=== PATIENT | female | born 1935 | race Caucasian/White ===

== ENCOUNTER 2018-07-14 21:32 | Inpatient (IN) | payer OTHER ==
[~2018-07-14] VITALS: Ht 162.6 cm; Wt 81.2 kg
[2018-07-14 21:32] VITALS: BP_SYST 115
[2018-07-14] MEDS ORDERED: ASPIRIN 81 MG TAB.CHEW PO ONE (21:45)
[2018-07-14] MEDS ORDERED: methylPREDNISolone SOD SUCC/PF 62.5 MG/ML VIAL IVP ONE (21:45)
[2018-07-14] MEDS ORDERED: LIDOCAINE JECT 2% PF 100 MG/5ML SYRINGE IVP ONE (21:45)
[2018-07-14] MEDS ORDERED: LevALBUTEROL HCL 1.25 MG/0.5 ML *CONC.* VIAL.NEB (XOPENEX CONC.) INH ONE ×2 (21:45→21:59)
[2018-07-14] MEDS ORDERED: IPRATROPIUM BROM 0.5 MG/2.5 ML VIAL.NEB (ATROVENT) IH ONE (21:45)
[2018-07-14] MEDS ORDERED: IPRATROPIUM BROM 0.5 MG/2.5 ML VIAL.NEB (ATROVENT) INH ONE (21:59)
[2018-07-14 22:09] LABS: ANION GAP 12 (5-15); CALCIUM 8.5 mg/dL (8.4-11.0); CHLORIDE 102 mmol/L (98-107); CREATININE 1.26 mg/dL (0.55-1.30); GLUCOSE 357 mg/dL (70-99); POTASSIUM 4.5 mmol/L (3.5-5.1); SODIUM SERUM 137 mmol/L (136-145); UREA NITROGEN, BLOOD 25 mg/dL (8-21)
[2018-07-14] MEDS ORDERED: ALBU8.5H8 INH (22:11)
[2018-07-14] MEDS ORDERED: LOSA100T3 PO (22:11)
[2018-07-14] MEDS ORDERED: DILTIAZEM HCL 25 MG/5 ML VIAL ONE (22:11)
[2018-07-14] MEDS ORDERED: METO25TA3 PO (22:11)
[2018-07-14] MEDS ORDERED: ASA81 PO (22:11)
[2018-07-14] MEDS ORDERED: OXYB10TA4 PO (22:11)
[2018-07-14 22:13] LABS: ALANINE AMINOTRANSFERASE 30 U/L (12-78); ALBUMIN 3.1 g/dL (3.4-4.8); ASPARTATE AMINOTRANSFERASE 17 U/L (10-37); TOTAL BILIRUBIN 0.6 mg/dL (0.0-1.0)
[2018-07-14] MEDS ORDERED: DILTIAZEM HCL 25 MG/5 ML VIAL IVP ONE ×2 (22:30)
[2018-07-14] MEDS ORDERED: DILTIAZEM HCL 125 MG in D5W 100 ML IV ONE (22:30)
[2018-07-14 22:36] LABS: HEMOGLOBIN 13.9 g/dL (12.0-16.0); RED BLOOD CELL COUNT(AUTO) 4.76 MIL/uL (4.2-6.2); WHITE BLOOD COUNT (AUTO) 10.7 K/uL (4.8-10.8)
[2018-07-14 22:37] LABS: HEMATOCRIT 46.2 % (36-48); MEAN CORPUSCULAR HEMOGLOBIN 29 pg (27-31); MEAN CORPUSCULAR HGB CONC 30 % (32-36); MEAN CORPUSCULAR VOLUME 97 fL (79.0-98.0); PLATELET COUNT (AUTO) 240 K/uL (130-430); RED CELL DISTRIBUTION WIDTH 17.1 % (9.0-15.0)
[2018-07-14 22:40] LABS: INR 1.1 (0.8-1.2); PROTHROMBIN TIME 11.1 SECS (9.5-12.5)
[2018-07-14] MEDS ORDERED: DILTIAZEM HCL 125 MG/25 ML VIAL IV ONE (22:41)
[2018-07-14] MEDS ORDERED: FUROSEMIDE 20 MG/2 ML VIAL IVP ONE (22:45)
[2018-07-14 23:00] LABS: BILIRUBIN,URINE NEGATIVE (NEGATIVE); BLOOD, URINE NEGATIVE (NEGATIVE); CLARITY/URINE SL HAZY (CLEAR); COLOR,URINE YELLOW (YELLOW); GLUCOSE,URINE NEGATIVE (NEGATIVE); KETONES,URINE NEGATIVE (NEGATIVE); LEUKOCYTE ESTERASE ,URINE 1+ (NEGATIVE); NITRITE, URINE POSITIVE (NEGATIVE); PROTEIN URINE TRACE (NEGATIVE)
[2018-07-14] MEDS ORDERED: INSULIN REGULAR, HUMAN 10 UNITS/0.1 ML INJ IVP ONE (23:00)
[2018-07-14 23:05] LABS: ATYPICAL LYMPHOCYTES % 0 % (0-0); BAND % (MANUAL) 7 % (0-6); EOSINOPHILS % (MANUAL) 0 % (0-7); LYMPHOCYTES % (MANUAL) 32 % (20-46); MONOCYTES % (MANUAL) 8 % (0-11)
[2018-07-14 23:06] LABS: BASOPHILS % (MANUAL) 0 % (0-2); METAMYELOCYTES % 1 % (0-0); MYELOCYTES % 2 % (0-0); PROMYELOCYTES % 0 % (0-0)
[2018-07-14 23:07] LABS: BACTERIA,URINE MANY /HPF (None Seen); RBC,URINE 0-3 /HPF (0-3); WBC,URINE 20-50 /HPF (0-3)
[2018-07-14 23:45] VITALS: BP_SYST 99
[2018-07-15] VITALS (26 sets, daily range): BP systolic 90–176
[2018-07-15] MEDS ORDERED: HYDROcodone/ACETAMIN 10-325 MG TAB PO PRN (01:15)
[2018-07-15] MEDS ORDERED: ALBUTEROL SULFATE 0.083% 2.5 MG/3 ML VIAL.NEB INH PRN (01:15)
[2018-07-15] MEDS ORDERED: DILTIAZEM HCL 125 MG in D5W 100 ML IV SCH (01:15)
[2018-07-15] MEDS ORDERED: HYDROcodone/ACETAMIN 5-325 MG TAB (NORCO/ VICODIN) PO PRN (01:15)
[2018-07-15] MEDS ORDERED: ONDANSETRON HCL 4 MG/2 ML VIAL IVP PRN (01:15)
[2018-07-15] MEDS ORDERED: INSULIN ASPART 100 UNITS/ML, 10 ML VIAL (NovoLOG) SUBCUT PRN (01:15)
[2018-07-15] MEDS ORDERED: NOREPINEPHRINE BITARTRATE 4 MG in D5W 246 ML IV PRN (01:30)
[2018-07-15] MEDS ORDERED: AZITHROMYCIN 500 MG/VIAL (ZITHROMAX) IV ONE (02:05)
[2018-07-15] MEDS ORDERED: cefTRIAXone 1 GM IVPB PREMIX 50 ML IV ONE (02:05)
[2018-07-15] MEDS: cefTRIAXone 1 GM IVPB PREMIX 50 ML IV SCH (02:19)
[2018-07-15] MEDS: AZITHROMYCIN 500 MG in NS 250 ML IV SCH (03:23)
[2018-07-15 05:34] LABS: HEMATOCRIT 40.3 % (36-48); MEAN CORPUSCULAR HEMOGLOBIN 29 pg (27-31); MEAN CORPUSCULAR HGB CONC 32 % (32-36); MEAN CORPUSCULAR VOLUME 91 fL (79.0-98.0); PLATELET COUNT (AUTO) 200 K/uL (130-430); RED BLOOD CELL COUNT(AUTO) 4.42 MIL/uL (4.2-6.2); RED CELL DISTRIBUTION WIDTH 16.1 % (9.0-15.0); WHITE BLOOD COUNT (AUTO) 6.9 K/uL (4.8-10.8)
[2018-07-15 05:35] LABS: ANION GAP 9 (5-15); BASOPHILS % (AUTO) 0.1 % (0.0-2.0); CALCIUM 8.3 mg/dL (8.4-11.0); CHLORIDE 104 mmol/L (98-107); CREATININE 1.13 mg/dL (0.55-1.30); GLUCOSE 259 mg/dL (70-99); LYMPHOCYTES # (AUTO) 0.4 K/uL (1.0-5.5); LYMPHOCYTES % (AUTO) 6.1 % (20.5-51.5); MONOCYTES # (AUTO) 0.4 K/uL (0.0-1.0); MONOCYTES % (AUTO) 5.1 % (1.7-9.3); NEUTROPHILS # (AUTO) 6.1 K/uL (1.8-7.7); NEUTROPHILS % (AUTO) 88.7 % (40.0-70.0); POTASSIUM 5.3 mmol/L (3.5-5.1); SODIUM SERUM 137 mmol/L (136-145); UREA NITROGEN, BLOOD 33 mg/dL (8-21)
[2018-07-15 05:44] LABS: ALANINE AMINOTRANSFERASE 517 U/L (12-78); ALBUMIN 2.9 g/dL (3.4-4.8); ASPARTATE AMINOTRANSFERASE 450 U/L (10-37); TOTAL BILIRUBIN 0.4 mg/dL (0.0-1.0)
[2018-07-15] MEDS: NORMAL SALINE 5 ML DISP.SYRIN IVF SCH ×3 (06:11→22:14)
[2018-07-15] MEDS: INSULIN Lispro 100 UNITS/ML VIAL (humaLOG) SUBCUT PRN ×4 (06:55→22:22)
[2018-07-15] MEDS ORDERED: ENOXAPARIN SODIUM 30 MG/0.3 ML SYRINGE SUBCUT SCH (09:00)
[2018-07-15 09:11] LABS: ANION GAP 6 (5-15); CALCIUM 8.4 mg/dL (8.4-11.0); CHLORIDE 105 mmol/L (98-107); CREATININE 1.02 mg/dL (0.55-1.30); GLUCOSE 229 mg/dL (70-99); SODIUM SERUM 138 mmol/L (136-145); UREA NITROGEN, BLOOD 30 mg/dL (8-21)
[2018-07-15 09:16] LABS: ALANINE AMINOTRANSFERASE 459 U/L (12-78); ASPARTATE AMINOTRANSFERASE 308 U/L (10-37); TOTAL BILIRUBIN 0.5 mg/dL (0.0-1.0)
[2018-07-15] MEDS: FUROSEMIDE 40 MG/4 ML VIAL IVP SCH (09:25)
[2018-07-15] MEDS: ASPIRIN 81 MG TAB.CHEW PO SCH (09:25)
[2018-07-15] MEDS: PANTOPRAZOLE SODIUM 40 MG TAB PO SCH (09:26)
[2018-07-15] MEDS: LOSARTAN POTASSIUM 50 MG TABLET (COZAAR) PO SCH (09:26)
[2018-07-15] MEDS: METOPROLOL SUCCINATE 25 MG TAB.SR.24H (TOPROL XL) PO SCH (09:36)
[2018-07-15] MEDS ORDERED: DILTIAZEM HCL 125 MG/25 ML VIAL IV ONE (09:45)
[2018-07-15] MEDS ORDERED: LEVALBUTEROL HCL 0.63 MG/3 ML VIAL.NEB INH ONE (14:15)
[2018-07-15] MEDS: IPRATROPIUM BROM 0.5 MG/2.5 ML VIAL.NEB (ATROVENT) INH SCH ×2 (15:00→22:10)
[2018-07-15] MEDS ORDERED: LIDOCAINE JECT 2% PF 100 MG/5ML SYRINGE IVP ONE (16:24)
[2018-07-15] MEDS ORDERED: AMIODARONE HCL 200 MG TABLET PO ONE (18:30)
[2018-07-15] MEDS ORDERED: APIXABAN 2.5 MG TABLET PO ONE (18:30)
[2018-07-15] MEDS: LEVALBUTEROL HCL 0.63 MG/3 ML VIAL.NEB INH SCH (22:10)
[2018-07-16] MEDS: cefTRIAXone 1 GM IVPB PREMIX 50 ML IV SCH (01:58)
[2018-07-16] MEDS: AZITHROMYCIN 500 MG in NS 250 ML IV SCH (03:37)
[2018-07-16] MEDS: NORMAL SALINE 5 ML DISP.SYRIN IVF SCH ×3 (06:13→21:39)
[2018-07-16] MEDS: INSULIN Lispro 100 UNITS/ML VIAL (humaLOG) SUBCUT PRN ×3 (06:17→20:32)
[2018-07-16] MEDS: LEVALBUTEROL HCL 0.63 MG/3 ML VIAL.NEB INH SCH ×3 (07:20→23:57)
[2018-07-16] MEDS: IPRATROPIUM BROM 0.5 MG/2.5 ML VIAL.NEB (ATROVENT) INH SCH ×3 (07:20→23:58)
[2018-07-16 07:27] LABS: ALANINE AMINOTRANSFERASE 316 U/L (12-78); ALBUMIN 2.8 g/dL (3.4-4.8); ANION GAP 6 (5-15); ASPARTATE AMINOTRANSFERASE 115 U/L (10-37); BILIRUBIN,DIRECT 0.1 mg/dL (0.0-0.3); CHLORIDE 104 mmol/L (98-107); CREATININE 1.14 mg/dL (0.55-1.30); GLUCOSE 184 mg/dL (70-99); POTASSIUM 4.7 mmol/L (3.5-5.1); SODIUM SERUM 132 mmol/L (136-145); TOTAL BILIRUBIN 0.4 mg/dL (0.0-1.0); UREA NITROGEN, BLOOD 38 mg/dL (8-21)
[2018-07-16 08:05] VITALS: BP_SYST 134
[2018-07-16 08:07] LABS: HEMATOCRIT 38.6 % (36-48); HEMOGLOBIN 12.5 g/dL (12.0-16.0); MEAN CORPUSCULAR HEMOGLOBIN 30 pg (27-31); MEAN CORPUSCULAR HGB CONC 32 % (32-36); MEAN CORPUSCULAR VOLUME 92 fL (79.0-98.0); NEUTROPHILS % (AUTO) 78.5 % (40.0-70.0); PLATELET COUNT (AUTO) 171 K/uL (130-430); RED BLOOD CELL COUNT(AUTO) 4.19 MIL/uL (4.2-6.2); RED CELL DISTRIBUTION WIDTH 16.6 % (9.0-15.0); WHITE BLOOD COUNT (AUTO) 10.9 K/uL (4.8-10.8)
[2018-07-16 08:08] LABS: BASOPHILS % (AUTO) 0.4 % (0.0-2.0); EOSINOPHILS % (AUTO) 0.2 % (0.0-4.0); LYMPHOCYTES # (AUTO) 1.1 K/uL (1.0-5.5); LYMPHOCYTES % (AUTO) 10.2 % (20.5-51.5); MONOCYTES # (AUTO) 1.2 K/uL (0.0-1.0); MONOCYTES % (AUTO) 10.7 % (1.7-9.3); NEUTROPHILS # (AUTO) 8.5 K/uL (1.8-7.7)
[2018-07-16] MEDS: ASPIRIN 81 MG TAB.CHEW PO SCH (08:37)
[2018-07-16] MEDS: APIXABAN 2.5 MG TABLET PO SCH ×2 (08:38→20:30)
[2018-07-16] MEDS: PANTOPRAZOLE SODIUM 40 MG TAB PO SCH (08:39)
[2018-07-16] MEDS: METOPROLOL SUCCINATE 25 MG TAB.SR.24H (TOPROL XL) PO SCH (08:40)
[2018-07-16] MEDS: AMIODARONE HCL 200 MG TABLET PO SCH ×2 (08:41→20:30)
[2018-07-16] MEDS: LOSARTAN POTASSIUM 50 MG TABLET (COZAAR) PO SCH (08:41)
[2018-07-16] MEDS: FUROSEMIDE 40 MG/4 ML VIAL IVP SCH (08:42)
[2018-07-16 12:59] VITALS: BP_SYST 104
[2018-07-16 16:44] VITALS: BP_SYST 111
[2018-07-16 19:00] VITALS: BP_SYST 155
[2018-07-16 20:00] VITALS: BP_SYST 155
[2018-07-17 00:12] VITALS: BP_SYST 114
[2018-07-17] MEDS: cefTRIAXone 1 GM IVPB PREMIX 50 ML IV SCH (01:59)
[2018-07-17] MEDS: AZITHROMYCIN 500 MG in NS 250 ML IV SCH (03:09)
[2018-07-17] MEDS: NORMAL SALINE 5 ML DISP.SYRIN IVF SCH ×3 (05:32→21:15)
[2018-07-17 06:48] LABS: ANION GAP 2 (5-15); CHLORIDE 103 mmol/L (98-107); GLUCOSE 127 mg/dL (70-99); POTASSIUM 4.1 mmol/L (3.5-5.1); SODIUM SERUM 131 mmol/L (136-145); UREA NITROGEN, BLOOD 27 mg/dL (8-21)
[2018-07-17] MEDS: IPRATROPIUM BROM 0.5 MG/2.5 ML VIAL.NEB (ATROVENT) INH SCH ×3 (07:10→23:30)
[2018-07-17] MEDS: LEVALBUTEROL HCL 0.63 MG/3 ML VIAL.NEB INH SCH ×3 (07:11→23:30)
[2018-07-17 08:00] VITALS: BP_SYST 118
[2018-07-17] MEDS: PANTOPRAZOLE SODIUM 40 MG TAB PO SCH (08:30)
[2018-07-17] MEDS: METOPROLOL SUCCINATE 25 MG TAB.SR.24H (TOPROL XL) PO SCH ×2 (08:30→21:12)
[2018-07-17] MEDS: ASPIRIN 81 MG TAB.CHEW PO SCH (08:30)
[2018-07-17] MEDS: APIXABAN 2.5 MG TABLET PO SCH ×2 (08:30→21:14)
[2018-07-17] MEDS: AMIODARONE HCL 200 MG TABLET PO SCH ×2 (08:31→21:12)
[2018-07-17] MEDS: LOSARTAN POTASSIUM 50 MG TABLET (COZAAR) PO SCH (08:31)
[2018-07-17] MEDS: FUROSEMIDE 40 MG/4 ML VIAL IVP SCH (08:31)
[2018-07-17] MEDS: INSULIN Lispro 100 UNITS/ML VIAL (humaLOG) SUBCUT PRN ×2 (11:22→21:10)
[2018-07-17 11:47] VITALS: BP_SYST 130
[2018-07-17] MEDS ORDERED: DILTIAZEM HCL 25 MG/5 ML VIAL IVP ONE (14:15)
[2018-07-17 15:19] VITALS: BP_SYST 119
[2018-07-18 01:16] VITALS: BP_SYST 135
[2018-07-18] MEDS: cefTRIAXone 1 GM IVPB PREMIX 50 ML IV SCH (01:28)
[2018-07-18] MEDS: AZITHROMYCIN 500 MG in NS 250 ML IV SCH (04:08)
[2018-07-18] MEDS: INSULIN Lispro 100 UNITS/ML VIAL (humaLOG) SUBCUT PRN ×3 (05:47→21:15)
[2018-07-18] MEDS: NORMAL SALINE 5 ML DISP.SYRIN IVF SCH ×3 (06:35→22:00)
[2018-07-18] MEDS: IPRATROPIUM BROM 0.5 MG/2.5 ML VIAL.NEB (ATROVENT) INH SCH ×3 (08:04→23:21)
[2018-07-18] MEDS: LEVALBUTEROL HCL 0.63 MG/3 ML VIAL.NEB INH SCH ×3 (08:04→23:21)
[2018-07-18 08:10] VITALS: BP_SYST 141
[2018-07-18] MEDS: FUROSEMIDE 40 MG/4 ML VIAL IVP SCH (08:51)
[2018-07-18] MEDS: PANTOPRAZOLE SODIUM 40 MG TAB PO SCH (08:52)
[2018-07-18] MEDS: LOSARTAN POTASSIUM 50 MG TABLET (COZAAR) PO SCH (08:52)
[2018-07-18] MEDS: AMIODARONE HCL 200 MG TABLET PO SCH ×2 (08:52→21:11)
[2018-07-18] MEDS: APIXABAN 2.5 MG TABLET PO SCH ×2 (08:53→21:12)
[2018-07-18] MEDS: METOPROLOL SUCCINATE 25 MG TAB.SR.24H (TOPROL XL) PO SCH (08:53)
[2018-07-18] MEDS: ASPIRIN 81 MG TAB.CHEW PO SCH (08:54)
[2018-07-18 11:21] VITALS: BP_SYST 122
[2018-07-18 15:29] VITALS: BP_SYST 117
[2018-07-18 19:37] VITALS: BP_SYST 134
[2018-07-18] MEDS: METOPROLOL SUCCINATE 50 MG TAB.SR.24H (TOPROL XL) PO SCH (21:11)
[2018-07-19 00:28] VITALS: BP_SYST 128
[2018-07-19] MEDS: cefTRIAXone 1 GM IVPB PREMIX 50 ML IV SCH (02:07)
[2018-07-19] MEDS: AZITHROMYCIN 500 MG in NS 250 ML IV SCH (03:06)
[2018-07-19] MEDS: INSULIN Lispro 100 UNITS/ML VIAL (humaLOG) SUBCUT PRN ×2 (05:44→12:30)
[2018-07-19] MEDS: NORMAL SALINE 5 ML DISP.SYRIN IVF SCH (05:51)
[2018-07-19] MEDS: LEVALBUTEROL HCL 0.63 MG/3 ML VIAL.NEB INH SCH (07:22)
[2018-07-19] MEDS: IPRATROPIUM BROM 0.5 MG/2.5 ML VIAL.NEB (ATROVENT) INH SCH (07:22)
[2018-07-19] MEDS: ASPIRIN 81 MG TAB.CHEW PO SCH (10:39)
[2018-07-19] MEDS: FUROSEMIDE 40 MG/4 ML VIAL IVP SCH (10:40)
[2018-07-19] MEDS: AMIODARONE HCL 200 MG TABLET PO SCH (10:41)
[2018-07-19] MEDS: METOPROLOL SUCCINATE 50 MG TAB.SR.24H (TOPROL XL) PO SCH (10:42)
[2018-07-19] MEDS: LOSARTAN POTASSIUM 50 MG TABLET (COZAAR) PO SCH (10:43)
[2018-07-19] MEDS: APIXABAN 2.5 MG TABLET PO SCH (10:44)
[2018-07-19] MEDS: PANTOPRAZOLE SODIUM 40 MG TAB PO SCH (10:47)
[2018-07-19 12:47] VITALS: BP_SYST 124
[2018-07-19] MEDS ORDERED: METO50TA7 PO (12:53)
[2018-07-19] MEDS ORDERED: APIX5TAB PO (12:53)
[2018-07-19] MEDS ORDERED: FURO-149 PO (12:54)
[2018-07-19] MEDS ORDERED: AMIO400T5 PO (12:54)
[2018-07-19] MEDS ORDERED: AMOX-426 PO (12:54)
[2018-07-19 14:17] VITALS: BP_SYST 124
== END 2018-07-19 15:20 | disposition home or self-care (01) | DRG 291 ==
LOC: SED 21:32 → SIC 23:07 → STU 07-15 23:25
PROVIDERS: ADMIT Internal Medicine; ATTEND Internal Medicine
PROC: 5A09357 Assistance with Respiratory Ventilation, Less than 24 Consecutive Hours, Continuous Positive Airway Pressure (ICD-10-PCS; principal; 2018-07-14)
DX: I11.0 Hypertensive heart disease with heart failure (principal); J96.01 Acute respiratory failure with hypoxia; J44.1 Chronic obstructive pulmonary disease with (acute) exacerbation; N39.0 Urinary tract infection, site not specified; E87.1 Hypo-osmolality and hyponatremia; E46 Unspecified protein-calorie malnutrition; I48.0 Paroxysmal atrial fibrillation; I50.43 Acute on chronic combined systolic (congestive) and diastolic (congestive) heart failure; E11.65 Type 2 diabetes mellitus with hyperglycemia; K64.4 Residual hemorrhoidal skin tags; Z82.49 Family history of ischemic heart disease and other diseases of the circulatory system; Z85.3 Personal history of malignant neoplasm of breast; Z87.891 Personal history of nicotine dependence; Z90.13 Acquired absence of bilateral breasts and nipples; Z90.710 Acquired absence of both cervix and uterus; Z68.30 Body mass index [BMI] 30.0-30.9, adult; Z79.82 Long term (current) use of aspirin; Z79.899 Other long term (current) drug therapy
CPT/HCPCS: 36415; 36600; 71045; 80048; 80053; 80076; 81000-TC; 82803-TC; 82962; 83880; 84484; 85007; 85025; 85027; 85610-TC; 85730-TC; 87081; 87086; 87186-TC; 93005; 93306; 94640; 94760; 96374; 96375; 97110-GP; 97116-GP; 97530-GP; 99291; G0378; J0456; J0696; J1650; J1815; J1940; J2930; J3490; J7050; J7612; J7614